=== PATIENT | female | born 1970 | race Two or more races ===

== ENCOUNTER 2018-01-27 09:01 | Emergency (ER) | payer OTHER ==
[~2018-01-27] VITALS: Ht 162.6 cm; Wt 90.7 kg
[~2018-01-27 09:01] MED LIST: PLAVIX75 MG; TOPROL XL50 MG; VASOTEC20 M1; VASOTEC20 MG
[2018-01-27] MEDS ORDERED: NORVASC2.5 M1 (10:01)
[2018-01-27] MEDS ORDERED: AMOXICILLIN500 MG PO (14:39)
[2018-01-27] MEDS ORDERED: BENADRYL50 MG PO (14:39)
== END 2018-01-27 14:44 | disposition home or self-care (01) ==
LOC: ER 09:01
DX: K14.8 Other diseases of tongue (principal); N61.0 Mastitis without abscess